=== PATIENT | male | born 1970 | race Caucasian/White ===

== ENCOUNTER 2025-06-03 10:22 | Emergency (ER) | payer SELFPAY ==
[2025-06-03 10:27] VITALS: BP 161/105
--- NOTE | 2025-06-03 12:40 | ED.GENMED ---
History of Present Illness
General
Chief Complaint: Musculo-Skeletal Complaint
Time Seen by Provider: 06/03/25 11:59
History of Present Illness
History of Present Illness:
55-year-old male without significant past medical history presenting for right wrist pain. Patient reports symptoms started on Tuesday, 3 days ago after he was lifting heavy tables. Denies direct trauma to the wrist. Notes persistent pain and
swelling. Denies fever. Denies numbness or tingling. Has tried ice. Denies additional acute medical complaints
Past History
Past History
ED Past Medical History: None
ED Past Surgical History: None
Social History
Tobacco: Non-smoker
Alcohol: None
Drug: None
Living: with family
Phy Exam
Physical Exam
Physical Exam:
General: Well-appearing, no clinical signs of dehydration, nontoxic and in no acute distress
HEENT: protecting airway
Neck: appears supple
CV: Normal heart rate
Resp: No accessory muscle use, no increased work of breathing
Abd: no distension
Extremities: No significant deformity or swelling to the right wrist. Range of motion is intact. No erythema or warmth
Neuro: alert, no focal neurologic deficit
: deferred
Rectal: deferred
Psych: Normal affect
Skin: Intact
Course
Orders/Labs/Results
Orders:
Orders
06/03/25 10:30
CR Wrist - Right Min 3 Views Urgent
Comment:
Reason For Exam: Injury
Vital Signs
Initial and Last Documented VS:
Initial Vital Signs
Temp Pulse Resp BP Pulse Ox
98.4 F 76 16 161/105 99
06/03/25 10:27 06/03/25 10:27 06/03/25 10:27 06/03/25 10:27 06/03/25 10:27
Last Documented Vital Signs
Temp Pulse Resp BP Pulse Ox
98.4 F 76 16 161/105 99
06/03/25 10:27 06/03/25 10:27 06/03/25 10:27 06/03/25 10:27 06/03/25 10:27
MDM/Problems Addressed
MDM/Problems Addressed:
55-year-old male presenting for right wrist pain after lifting heavy tables. Vital signs are significant for mild hypertension.
On exam patient is resting, no acute distress or discomfort. Benign examination of the wrist. No swelling or deformity with mild tenderness at the lateral aspect. Range of motion intact. No neurovascular compromise. No erythema or warmth or
concern for underlying infection. X-ray obtained, no fracture. Feel stable for discharge with continued outpatient supportive therapy. Wrist splint provided. Return precautions discussed and patient verbalized understanding
*Pulse Oximetry
SaO2: 99
Oxygen Mode of Delivery: Room air
Patient hypoxic: no
*Critical Care Note
Total Time (30-74mins, 75-104mins- exclusive of procedures): Not Applicable
ED Attending Note
-
Portions of this chart may have been created with voice recognition software.� Occasional wrong word or��sound alike� substitutions may have occurred due to the inherent limitations of voice recognition software.
Discharge Plan
Departure
Patient Disposition: Home (Routine Discharge)
Date of Disposition: 06/03/25
Time of Disposition: 12:43
Patient with high blood pressure during this ER visit?: Yes
Condition: Good
Discharge Problem:
Right wrist sprain
Instructions: Sprain (DC), Wrist Sprain ED, BLOOD PRESSURE
Prescriptions:
No Action
hydrocodone-acetaminophen 1 TABLET tablet
1 tab PO Q4HPRN PRN (Reason: severe pain) Qty: 10 0RF
Referrals:
Hank Ascencio DO [Family Provider, Family Practice]
Shorty Borrero MD [Active, Orthopedics]
Activity Restrictions/Additional Instructions:
You were seen in the emergency department for wrist pain
You were found to have a normal x-ray of your wrist. We suspect a sprain. Please follow-up with orthopedic doctor and maintain your splint.
Please follow-up closely with your primary care physician.
Return to the emergency department for any worsening of your symptoms, or any development of chest pain, difficulty breathing, abdominal pain with persistent vomiting and inability to tolerate food or liquid by mouth (concern for dehydration),
weakness, headache or confusion, fever greater than 100.4, or any additional symptoms that are concerning to you.
Thank you for choosing [facility].
Interventions
Interventions:
ED-Musculoskeletal Assessment Last Done: 06/03/25 11:35
Discharge Date and Time
Print Language: SPANISH
== END 2025-06-03 12:49 | disposition home or self-care (01) ==
LOC: EMR 10:22
PROVIDERS: EMERGENCY PHYSICIAN Student in an Organized Health Care Education/Training Program; FAMILY PHYSICIAN Family Medicine
DX: S63.501A Unspecified sprain of right wrist, initial encounter (principal); X58.XXXA Exposure to other specified factors, initial encounter
CPT/HCPCS: 99283; 29125; 73110

== ENCOUNTER 2025-09-05 12:26 | Emergency (ER) | payer OTHER, SELFPAY ==
[2025-09-05 12:33] VITALS: BP 175/121
[2025-09-05 14:41] LABS: Hematocrit 45.6 % (39.0-52.0); Hemoglobin 15.5 g/dL (13.0-18.0); Mean Corp Hgb Conc. 34.0 g/dL (33.0-37.0); Mean Corpuscular Volume 84.3 fL (80.0-94.0); Nucleated Red Blood Cells % 0 % (-); Platelet Count 262 10^3/uL (130-400); Red Cell Dist. Width 13.0 % (11.5-14.5)
[2025-09-05 14:43] VITALS: BP 147/93
[2025-09-05 15:05] LABS: ALT (SGPT) 50 U/L (0-50); AST (SGOT) 32 U/L (17-59); Albumin 5.2 g/dl (3.5-5.0); Alkaline Phosphatase 75 U/L (38-126); Blood Urea Nitrogen 13 mg/dl (9-20); Calcium 9.8 mg/dl (8.4-10.2); Carbon Dioxide 30 mmol/L (22-30); Chloride 100 mmol/L (98-107); Glucose 101 mg/dl (70-99); Potassium 4.4 mmol/L (3.5-5.1); Sodium 139 mmol/L (135-145); Total Protein 8.3 g/dl (6.3-8.2); Troponin I < 0.012 ng/ml; eGFR > 60.00
[2025-09-05 15:15] VITALS: BP 142/95; BMI 25.9
--- NOTE | 2025-09-05 15:25 | ED.GENMED ---
History of Present Illness
General
Chief Complaint: Chest Pain
Time Seen by Provider: 09/05/25 13:58
History of Present Illness
History of Present Illness:
55 yo male w/ hx of HTN and HLD presents for evaluation of a brief episode of chest pain waking him up from sleep this morning. Lasted 1-2 hours, now resolved. No hx of similar. Pain radiated to the jaw. No primary FmHx of CAD. Non smoker. No
fevers, chills or sweats, no SOB.
Past History
Past History
ED Past Medical History: None
ED Past Surgical History: None
Social History
Tobacco: Non-smoker
Alcohol: None
Drug: None
Living: with family
Review of Systems
Review of Systems
Allergies reviewed?: Yes
All Other Systems: ROS reviewed and negative except as documented in HPI and ROS
Phy Exam
Physical Exam
Physical Exam:
GEN: Well appearing, NAD, WDWN
HEENT: Oral mucosa moist, no scleral icterus
Cardiac: Regular rate and rhythm, no murmur
Lung: No respiratory distress, no tachypnea, lungs CTAB
MSK: No gross deformity or injuries
Skin: Good color, no pallor or jaundice, no rashes
Neuro: AO x3, moves all extremities freely
Psych: Calm, cooperative
Scores
Heart Score for Chest Pain Patients
STEMI patient?: No
History: Slightly or Non-Suspicious
ECG: Normal
Age: >45 - <65 years
Risk Factors: 1 or 2 Risk Factors
Troponin: </= Normal Limit
Heart Score for Chest Pain Patients: 2
Heart Score Risk: 2.5% MACE over next 6 weeks
Course
Orders/Labs/Results
Orders:
Orders
09/05/25 12:26
EKG [Electrocardiogram (*1)] Urgent
Reason for Study: Chest Pain
EKG- Treatment ONCE
09/05/25 14:27
Complete Blood Count/With Diff Urgent
Comprehensive Metabolic Panel Urgent
Troponin I Urgent
Abnormal Lab Results
09/05/25
14:27
Absolute Lymphs (auto) 1.1 L 10^3/uL
(1.2-3.4)
Glucose 101 H mg/dl
(70-99)
Total Protein 8.3 H g/dl
(6.3-8.2)
Albumin 5.2 H g/dl
(3.5-5.0)
09/05/25 14:27
09/05/25 14:27
Vital Signs
Initial and Last Documented VS:
Initial Vital Signs
Temp Pulse Resp BP Pulse Ox
98.1 F 95 18 175/121 97
09/05/25 12:33 09/05/25 12:33 09/05/25 12:33 09/05/25 12:33 09/05/25 12:33
Last Documented Vital Signs
Temp Pulse Resp BP Pulse Ox
98.1 F 82 18 142/95 96
09/05/25 12:33 09/05/25 15:15 09/05/25 15:15 09/05/25 15:15 09/05/25 15:26
MDM/Problems Addressed
MDM/Problems Addressed:
Patient's troponin is negative, symptoms may represent GERD however will refer to cardiology for an outpatient follow-up
Comment
Comment:
EKG independently interpreted by me negative for ischemia, NSR
*Pulse Oximetry
SaO2: 96
Oxygen Mode of Delivery: Room air
Patient hypoxic: no
*Critical Care Note
Total Time (30-74mins, 75-104mins- exclusive of procedures): Not Applicable
ED Attending Note
-
Portions of this chart may have been created with voice recognition software.� Occasional wrong word or��sound alike� substitutions may have occurred due to the inherent limitations of voice recognition software.
Discharge Plan
Departure
Patient Disposition: Home (Routine Discharge)
Date of Disposition: 09/05/25
Time of Disposition: 15:25
Patient with high blood pressure during this ER visit?: Yes
Discharge Problem:
Atypical chest pain
Instructions: Chest Pain DCA Follow Up
Prescriptions:
No Action
hydrocodone-acetaminophen 1 TABLET tablet
1 tab PO Q4HPRN PRN (Reason: severe pain) Qty: 10 0RF
Referrals:
Handy Caputo DO [Active, Cardiology]
Hank Ascencio DO [Family Provider, Family Practice]
Interventions
Interventions:
*Risk Screen - Suicide Last Done: 09/05/25 12:33
*General Assessment Last Done: 09/05/25 12:33
*Neglect/Abuse Screening Last Done: 09/05/25 15:16
*ED- Fall Risk Assessment Last Done: 09/05/25 15:16
*ED COVID-19 Vaccine History Last Done: 09/05/25 14:30
*ED Influenza Vaccine History Last Done: 09/05/25 14:30
*Nursing Disposition Last Done: 09/05/25 15:43
ED- Cardiac Assessment Last Done: 09/05/25 14:30
Discharge Date and Time
Discharge Date/Time: 09/05/25 15:43
Print Language: SETSWA[place]
== END 2025-09-05 15:43 | disposition home or self-care (01) ==
LOC: EMR 12:26
PROVIDERS: Physician Assistant; EMERGENCY PHYSICIAN Student in an Organized Health Care Education/Training Program; FAMILY PHYSICIAN Family Medicine
DX: R07.89 Other chest pain (principal); I10 Essential (primary) hypertension; E78.5 Hyperlipidemia, unspecified
CPT/HCPCS: 99284; 80053; 84484; 85025; 93005

== ENCOUNTER → 2025-09-18 12:22 | Outpatient (REF) | payer OTHER, SELFPAY | LOC: RCS 12:22 | PROVIDERS: ATTENDING PHYSICIAN Internal Medicine Cardiovascular Disease; FAMILY PHYSICIAN Family Medicine | DX: R07.89 Other chest pain (principal); R06.09 Other forms of dyspnea; I10 Essential (primary) hypertension | CPT/HCPCS: 93017; 93306; 93350; Q9950 ==